=== PATIENT | male | born 1970 | race Caucasian/White ===

== ENCOUNTER 2017-09-23 15:01 | Outpatient (CLI) | payer OTHER ==
[2017-09-23 16:20] LABS: #Basophils 0.1 thou/uL (0.0-0.2); #Eosinphils 0.3 thou/uL (0.0-0.7); #Lymphocytes 2.5 thou/uL (1.20-3.40); #Monocytes 0.7 thou/uL (0.11-0.59); #Neutrophils 3.7 thou/uL (1.40-6.50); %Basophils 0.9 % (0.0-1.0); %Neutrophils 51.1 % (42.0-75.0); Hemoglobin 15.9 g/dL (14.0-18.0); Mean Corpuscular Hemoglobin 32.6 pg (27.0-31.0); Mean Corpuscular Volume 90.5 fl (80.0-94.0); Platelet Count 261 thou/uL (130-400); RBC Distribution Width 12.4 % (11.5-14.5); Red Blood Cell (RBC) Count 4.89 mill/uL (4.70-6.10); White Blood Cell (WBC) Count 7.3 thou/uL (4.8-10.8)
[2017-09-23 16:40] LABS: Anion Gap 8 mmol/L (10-20); BUN (Urea Nitrogen) 20 mg/dL (8.9-20.6); Calc. Creatinine Clearance 0 mL/min (70-130); Calcium 9.1 mg/dL (7.8-10.44); Carbon Dioxide 25 mmol/L (22-29); Chloride 111 mmol/L (98-107); Estimated GFR-MDRD Greater than 90; Glucose 93 mg/dL (70-105); Potassium 3.9 mmol/L (3.5-5.1); Sodium 140 mmol/L (136-145)
== END 2017-09-23 15:02 | disposition home or self-care (01) ==
LOC: LABBT 15:01
PROVIDERS: ATTEND Surgery
DX: Z01.818 Encounter for other preprocedural examination (principal); K42.9 Umbilical hernia without obstruction or gangrene
CPT/HCPCS: 80048; 85025; 93005; 93010

== ENCOUNTER 2017-10-08 10:02 | Day surgery (SDC) | payer OTHER ==
[2017-09-23 15:15] VITALS: BMI 39.9
[2017-10-08] MEDS ORDERED: CEFAZOLIN/Water 2 GM/20 ML SYRINGE ONE (11:50)
[2017-10-08] MEDS ORDERED: Lidocaine 1% PF 5 ML VIAL ONE (12:02)
[2017-10-08] MEDS ORDERED: ePHEDrine/0.9% NaCl/PF SYRINGE 50 mg/10 ml ONE (12:02)
[2017-10-08] MEDS ORDERED: Ondansetron HCl/PF 4 MG/2 ML Vial ONE (12:02)
[2017-10-08] MEDS ORDERED: Dexamethasone 20 MG/5 ML VIAL ONE (12:02)
[2017-10-08] MEDS ORDERED: PROPOFOL 200 MG/20 ML VIAL ONE (12:02)
[2017-10-08] MEDS ORDERED: Glycopyrrolate 0.2 MG/ML 5 ML SYRINGE ONE (12:02)
[2017-10-08] MEDS ORDERED: Scopolamine 1.5 mg/72 hour Patch ONE (13:52)
[2017-10-08] MEDS ORDERED: Midazolam HCl 2 mg/2 ml Vial ONE ×2 (13:54→14:11)
[2017-10-08] MEDS ORDERED: Bupivacaine/Epinephrine 0.25% 30 ML VIAL ONE (14:04)
[2017-10-08] MEDS ORDERED: Fentanyl 100 MCG/2 ML VIAL ONE ×2 (14:11→16:30)
[2017-10-08] MEDS ORDERED: Fentanyl 250 MCG/5 ML VIAL ONE (14:11)
[2017-10-08] MEDS ORDERED: HYDROcodone/Acetaminophen 5/325 mg Tablet ONE (19:14)
[2017-10-08] MEDS ORDERED: Promethazine HCl 25 MG/ML VIAL ONE (19:34)
--- NOTE | 2017-10-09 12:52 | OP ---
DATE OF PROCEDURE: 10/08/2017 PREOPERATIVE DIAGNOSIS: Ventral hernia. POSTOPERATIVE DIAGNOSIS: Ventral hernia. PROCEDURE: Laparoscopic da Anival robot ventral hernia repair with mesh, Ventralex ST 8 cm. SURGEON: Primitivo Mcgrath M.D. ANESTHESIA: General. ESTIMATED BLOOD LOSS: Minimal. COMPLICATIONS: None. SPECIMEN: None. FINDINGS: Ventral hernia. TECHNIQUE: The patient was taken to the operating room and placed supine on the table. After genera l anesthetic was obtained, arms draped at the side. An OG tube used to decompress the stomach. His abdomen were shaved, prepped, and draped in a sterile fashion. Left subcostal 5-mm Optiview trocar p laced in the usual fashion and high-flow pneumoperitoneum was obtained. Left and right abdominal sub costal 8 mm robot ports were placed. The 5 mm left subcostal port is replaced to an 11 mm balloon, a pplied medical trocar. The robot is brought in from the feet parallel on the patient's left and all ports were docked to the robot. Surgeon goes to the console. The peritoneum is taken down exposing the defect. A few adhesions were taken down. The defect was closed primarily using a running 0 V-Lo c suture. An [address] mesh has its nonadherent surface labeled, it is rolled and placed in the abdominal cavity. The exposed mesh side was placed up against the posterior abdominal wall. The needle from the V-Loc is used to hold it up against the posterior abdominal wall, 3-0 Stratafix sutu res used to sew the mesh to the posterior peritoneum and fascia circumferentially around the edges. All 3 needles were removed from the abdomen. There was no injury to any intraabdominal structures. All ports sites were infiltrated using local anesthetic. All ports were removed under direct visuali zation. Pneumoperitoneum was let down. All incisions were irrigated and closed using 4-0 Monocryl a nd Dermabond. The patient was taken to recovery in stable condition. All instrument counts, needle counts, and lap counts were correct.
== END 2017-10-08 21:30 | disposition home or self-care (01) ==
LOC: SDC 10:02
PROVIDERS: ATTEND Surgery
PROC: 0WUF4JZ Supplement Abdominal Wall with Synthetic Substitute, Percutaneous Endoscopic Approach (ICD-10-PCS; principal; 2017-10-08)
DX: K43.9 Ventral hernia without obstruction or gangrene (principal); F42.9 Obsessive-compulsive disorder, unspecified; I10 Essential (primary) hypertension; E66.01 Morbid (severe) obesity due to excess calories; Z68.38 Body mass index [BMI] 38.0-38.9, adult; Z79.899 Other long term (current) drug therapy; Z88.8 Allergy status to other drugs, medicaments and biological substances
CPT/HCPCS: 96374; J0131; J1100; J2001; J2250; J2405; J2550; J2704; J3010

== ENCOUNTER 2018-07-25 00:06 | Emergency (ER) | payer OTHER ==
[2018-07-25] MEDS ORDERED: Acetaminophen 500 MG TAB ONE (00:53)
[2018-07-25] MEDS ORDERED: Ibuprofen 800 MG TAB ONE (00:53)
--- NOTE | 2018-07-25 11:17 | RAD ---
THREE VIEWS OF THE LEFT FOOT: COMPARISON: None. HISTORY: Left foot injury at work. FINDINGS: Three views of the left foot show an oblique fracture through the 5th metatarsal with a small butterf ly fragment. Surrounding soft tissue swelling is seen. No other fractures or dislocations are seen. There is 1st metatarsal head hyperplasia. IMPRESSION: Fifth metatarsal fracture. POS: [facility]
== END 2018-07-25 01:05 | disposition home or self-care (01) ==
LOC: ERS 00:06
DX: S92.352A Displaced fracture of fifth metatarsal bone, left foot, initial encounter for closed fracture (principal); I10 Essential (primary) hypertension; F42.9 Obsessive-compulsive disorder, unspecified; W17.89XA Other fall from one level to another, initial encounter

== ENCOUNTER 2018-08-21 19:35 | Emergency (ER) | payer OTHER ==
--- NOTE | 2018-08-21 22:06 | ULT ---
FEXAM: Left lower extremity venous duplex: Deep veins evaluated with color Doppler, spectral analysis, and compression. INDICATIONS: Left lower extremity pain and edema. FINDINGS: Deep veins interrogated include common femoral vein, femoral vein, popliteal vein, and posterior tibi al vein. There is abnormal increased intraluminal echogenicity with diminished flow and compressibili ty of the posterior tibial vein. Otherwise, visualized veins show normal compression and blood flow. No evidence of DVT. IMPRESSION: Thrombus within the left posterior tibial vein.
== END 2018-08-21 22:36 | disposition home or self-care (01) ==
LOC: ERS 19:35
DX: I80.02 Phlebitis and thrombophlebitis of superficial vessels of left lower extremity (principal); I10 Essential (primary) hypertension; F42.9 Obsessive-compulsive disorder, unspecified; Z79.899 Other long term (current) drug therapy

== ENCOUNTER 2018-10-09 21:09 | Emergency (ER) | payer OTHER ==
[2018-10-09 22:20] LABS: HBSAB Concentration 1.56 mIU/mL; HIV (1/2) Antibody/Antigen Non-Reactive (NonReactive); Hep B Surf AB Non-Reactive (NonReactive); Hep C IgG Ab Non-Reactive (NonReactive); Hep C Index 0.13 S/CO (0-0.79)
== END 2018-10-09 22:19 | disposition home or self-care (01) ==
LOC: ERS 21:09
DX: S61.432A Puncture wound without foreign body of left hand, initial encounter (principal); F42.9 Obsessive-compulsive disorder, unspecified; I10 Essential (primary) hypertension; Z79.899 Other long term (current) drug therapy; W26.8XXA Contact with other sharp object(s), not elsewhere classified, initial encounter
CPT/HCPCS: 36415; 86706; 86803; 87389; 99283

== ENCOUNTER 2019-02-05 06:59 | Day surgery (SDC) | payer OTHER ==
[2019-02-04 11:31] VITALS: BMI 38.0
[2019-02-05] MEDS ORDERED: Midazolam HCl 2 mg/2 ml Vial ONE (09:16)
[2019-02-05] MEDS ORDERED: Fentanyl 100 MCG/2 ML VIAL ONE ×3 (09:16→11:40)
[2019-02-05] MEDS ORDERED: Bupivacaine PF 0.5% 30 ML VIAL ONE (10:29)
[2019-02-05] MEDS ORDERED: Glycopyrrolate 0.2 MG/ML 5 ML SYRINGE ONE (13:33)
[2019-02-05] MEDS ORDERED: Ketorolac Tromethamine 30 MG/ML VIAL ONE (13:33)
[2019-02-05] MEDS ORDERED: PROPOFOL 200 MG/20 ML VIAL ONE (13:33)
[2019-02-05] MEDS ORDERED: ePHEDrine 50 MG/ML VIAL ONE (13:33)
[2019-02-05] MEDS ORDERED: Ondansetron PF 4 MG/2 ML Vial ONE (13:33)
[2019-02-05] MEDS ORDERED: Dexamethasone 20 MG/5 ML VIAL ONE (13:33)
[2019-02-05] MEDS ORDERED: HYDROcodone/Acetaminophen 5/325 mg Tablet ONE (13:52)
--- NOTE | 2019-02-05 14:30 | RAD ---
EXAM: XR Foot Lt 2 View PROVIDED CLINICAL HISTORY: Surgery COMPARISON: 07/24/2018 FINDINGS: 2 spot fluoroscopic intraprocedural images of the left foot were obtained. Obliquely oriented fifth m etatarsal shaft fracture is redemonstrated. IMPRESSION: As above.
--- NOTE | 2019-02-05 21:29 | OP ---
DATE OF PROCEDURE: 02/05/2019 PREOPERATIVE DIAGNOSIS: Nonunion left fifth metatarsal shaft. 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 PROCEDURE PERFORMED: 1. Debridement of partial fibrous union of left fifth metatarsal shaft fracture with application of local bone graft. 2. [place] of local calcaneal bone graft. ANESTHESIA: General. TOURNIQUET TIME: Approximately 45 minutes at 300 mmHg. TELEPHONE STATION INSTALLER: Juliano Melchor PA-C IMPLANTS: Cancellous bone chips used to backfill defect in calcaneus. COMPLICATIONS: None. DRAINS: None. SPECIMEN: None. OUTCOME: Satisfactory. INDICATIONS FOR PROCEDURE: The patient is a pleasant 48-year-old gentleman status post fall in July, sustaining a twisting injury to his left foot. He was found to have a displaced 5th metatarsal shaft fracture that we decided to proceed with nonsurgical management for. The patient went on to what appeared to be some early union of the fracture; however, he continued to have symptoms and did have a large oblique portion of the fracture that was not united. It was felt that he probably did not have a full union and as such, we opted to proceed to the operating room for exploration and anticipated plating and bone grafting of this fracture. Informed consent has been obtained, I believe all questions have been answered. DESCRIPTION OF PROCEDURE: The patient was brought to the operating room and a time-out performed followed by induction of general anesthesia. Next, he was positioned supine on the OR table and a sterile prep and drape was performed in the left lower extremity. The limb was exsanguinated with Esmarch bandage, tourniquet inflated to 300 mmHg. A vertical incision was made centered between the 4th and 5th metatarsal shafts. After skin was sharply incised, dissection was carried down bluntly, retracting the extensor tendon medially and exposing the dorsal shaft of the 5th metatarsal. With this exposure, he was found to have a solid bridge of united bone at the dorsal most portion of the fracture as you headed farther distal from this point, there was a large void with fibrous filling of the area. A thorough exploration of this bone was performed and there was found to be solid union, however, was a very small overall surface area and it was felt that he was probably experiencing some stress reaction within the bone due to this incomplete healing. The fibrous tissue from the major fracture gap was then debrided in its entirety using a combination of curette and rongeur. Once fully debrided, drill holes were placed in the intramedullary canal of both the distal and proximal fragments to get bleeding bone. Next, a small incision was made at the lateral aspect of the calcaneal body. After skin was sharply incised, dissection was carried down bluntly to the lateral cortex of the calcaneus. A curette was then used to drill hole in the cortex and cancellous bone was harvested with the curette and packed in the 5th metatarsal fracture gap. A thorough packing was performed such that no further bone could be packed in this gap and AP, lateral, oblique C-arm images were obtained to show filling of this fracture gap. It was not felt that surgical stabilization with hardware was necessary due to the bony union more proximally. At the completion of this, the 2 wounds were irrigated with normal saline. The small calcaneal wound was closed with nylon. The dorsal foot wound closed in layers with 0 Vicryl followed by 2-0 Vicryl and then nylon for the skin. Xeroform gauze, Webril, and fiberglass splint were applied to the leg, tourniquet was let down, and the patient was transferred to recovery room in stable condition. There were no complications. He tolerated the procedure well. Job ID: [id number]
== END 2019-02-05 14:25 | disposition home or self-care (01) ==
LOC: SDC 06:59
PROVIDERS: ATTEND Orthopaedic Surgery
PROC: 0QUP0KZ Supplement Left Metatarsal with Nonautologous Tissue Substitute, Open Approach (ICD-10-PCS; principal; 2019-02-05)
DX: S92.352K Displaced fracture of fifth metatarsal bone, left foot, subsequent encounter for fracture with nonunion (principal); Z79.899 Other long term (current) drug therapy; Z88.8 Allergy status to other drugs, medicaments and biological substances; X50.1XXD Overexertion from prolonged static or awkward postures, subsequent encounter
CPT/HCPCS: 76000; 93005; 93010; J0690; J2250; J3010; S0020

== ENCOUNTER 2021-01-18 15:37 | Emergency (ER) | payer OTHER ==
[2021-01-18 16:07] LABS: #Eosinphils 0.1 thou/uL (0.0-0.7); #Lymphocytes 1.1 thou/uL (1.20-3.40); #Monocytes 0.6 thou/uL (0.11-0.59); #Neutrophils 6.3 thou/uL (1.40-6.50); %Eosinophils 0.6 % (0.0-10.0); %Lymphocytes 13.2 % (21.0-51.0); %Monocytes 7.7 % (0.0-10.0); %Neutrophils 78.5 % (42.0-75.0); Mean Corpuscular HGB CONC 34.9 g/dL (32.0-36.0); Mean Corpuscular Hemoglobin 31.5 pg (27.0-31.0); Mean Corpuscular Volume 90.3 fL (78.0-98.0); Mean Platelet Volume 6.7 fL (7.4-10.4); Platelet Count 279 thou/uL (130-400); RBC Distribution Width 11.6 % (11.5-14.5); Red Blood Cell (RBC) Count 4.43 mill/uL (4.70-6.10)
[2021-01-18 16:34] LABS: ALT (SGPT) 48 U/L (8-55); AST (SGOT) 23 U/L (5-34); Alkaline Phosphatase 76 U/L (40-110); Anion Gap 14 mmol/L (10-20); BUN (Urea Nitrogen) 12 mg/dL (8.9-20.6); Bilirubin, Total 0.9 mg/dL (0.2-1.2); Calc. Creatinine Clearance 0 mL/min (70-130); Carbon Dioxide 27 mmol/L (22-29); Chloride 105 mmol/L (98-107); Globulin 3.3 g/dL (2.4-3.5); Glucose 123 mg/dL (70-105); Potassium 3.5 mmol/L (3.5-5.1); Protein, Total 7.3 g/dL (6.0-8.3); Sodium 142 mmol/L (136-145)
[2021-01-18] MEDS ORDERED: Albuterol 200 PUFF (6.7GM INHALER) ONE (18:09)
[2021-01-18] MEDS ORDERED: Ketorolac Tromethamine 30 MG/ML VIAL ONE (18:10)
[2021-01-18] MEDS ORDERED: Ondansetron PF 4 MG/2 ML Vial ONE ×2 (18:10→18:11)
[2021-01-18] MEDS ORDERED: Ondansetron PF 4 MG/2 ML Vial IVP SCH (18:30)
[2021-01-18] MEDS ORDERED: Ketorolac Tromethamine 30 MG/ML VIAL IVP SCH (18:30)
[2021-01-18] MEDS ORDERED: Albuterol 200 PUFF (6.7GM INHALER) INH SCH (18:30)
[2021-01-18] MEDS ORDERED: Sodium Chloride 0.9% 1,000 ML IV SCH (18:30)
[2021-01-18] MEDS ORDERED: Dexamethasone 10 MG/ML VIAL ONE (19:33)
[2021-01-18] MEDS ORDERED: Metoclopramide HCl 10 MG/2 ML VIAL ONE (19:44)
== END 2021-01-18 20:47 | disposition home or self-care (01) ==
LOC: ERS 15:37
DX: U07.1 COVID-19 (principal); J12.82 Pneumonia due to coronavirus disease 2019; I10 Essential (primary) hypertension; Z79.899 Other long term (current) drug therapy
CPT/HCPCS: 36415; 71045; 80053; 84484; 85025; 93005; 94664; 96374; 96375; J1100; J1885; J2405; J2765

== ENCOUNTER 2022-07-22 13:23 | Emergency (ER) | payer BC ==
[2022-07-22] MEDS ORDERED: CEFAZOLIN 2 GM VIAL ONE ×2 (15:26→15:27)
[2022-07-22] MEDS ORDERED: Lidocaine 1% PF 5 ML VIAL ONE (15:29)
[2022-07-22] MEDS ORDERED: Bupivacaine 0.25% 10 ML VIAL ONE (15:29)
[2022-07-22] MEDS ORDERED: HYDROcodone/Acetaminophen 5/325 mg Tablet ONE (16:04)
[2022-07-22] MEDS ORDERED: Ondansetron PF 4 MG/2 ML Vial ONE (16:24)
[2022-07-22] MEDS ORDERED: Bacitracin 1 PK ONE (17:20)
== END 2022-07-22 17:53 | disposition home or self-care (01) ==
LOC: ERS 13:23
DX: S68.123A Partial traumatic metacarpophalangeal amputation of left middle finger, initial encounter (principal); S31.119A Laceration without foreign body of abdominal wall, unspecified quadrant without penetration into peritoneal cavity, initial encounter; I10 Essential (primary) hypertension; W27.0XXA Contact with workbench tool, initial encounter
CPT/HCPCS: 12032; 96365; 96375; J2405; S0020